=== PATIENT | female | born 1935 | race Caucasian/White ===

== ENCOUNTER 2018-03-15 10:29 | Outpatient (CLI) | payer MEDICARE, BC ==
[2018-03-15] MEDS ORDERED: ISOVUE-370 76%-LOCM 1 ML ONE (13:31)
--- NOTE | 2018-03-15 14:00 | CT ---
CT CHEST PERFORMED WITH INTRAVENOUS CONTRAST ENHANCEMENT: HISTORY: Abnormal parenchymal density seen at the lateral aspect of the right mid lung field on recent chest x -ray. COMPARISON: Chest exam from 03/04/2018. FINDINGS: The lungs show some chronic appearing change. In the area of concern, which is along the lateral asp ect of the thoracic wall and mainly extends along the minor fissure, but also involves the area near the confluence of the major and minor fissures. These changes appear to represent more an area of ei ther scar or some acute developing infiltrative change. Some of these changes are pleural-based, but do not have suspicious features for malignancy. There are small mediastinal lymph nodes, which appear pathologically enlarged. No significant hilar adenopathy. No axillary adenopathy. The visualized liver parenchyma is normal. There is a small hiatal hernia seen. The spleen is incom pletely visualized but appears slightly enlarged. The pancreas region is unremarkable. The gallblad sd has been removed. A partially visualized hypodensity of the upper pole of the right kidney is no t fully characterized. CT numbers are indeterminate. It could still represent a cyst. Ultrasound o n a nonemergent basis would be recommended as initial evaluation of this finding. CT numbers are hig her than typically seen for a cyst but could just be related to its rather small size. It measures a pproximately 14 mm. IMPRESSION: 1. The parenchymal density along the right mid lung field would suggest scar or some minimal infiltr ative type change in this region. There are chronic appearing lung changes. 2. Incompletely characterized hypodense lesion in the upper pole of the right kidney. Ultrasound wo uld be recommended for assessment of this, as the initial study. 3. Suggestion of some mild splenomegaly. POS: [facility]
== END 2018-03-15 10:30 | disposition home or self-care (01) ==
LOC: BICCT 10:29
PROVIDERS: ATTEND Internal Medicine Geriatric Medicine
DX: R91.1 Solitary pulmonary nodule (principal); J98.4 Other disorders of lung; N28.9 Disorder of kidney and ureter, unspecified
CPT/HCPCS: 71260; 82565

== ENCOUNTER 2018-03-28 12:35 | Outpatient (CLI) | payer MEDICARE, BC ==
--- NOTE | 2018-03-28 14:48 | ULT ---
BILATERAL RENAL ULTRASOUND COMPLETE: HISTORY: An 82-year-old female with a history of follow up right upper pole lesion from prior CT. COMPARISON: Chest CT scan from 03/15/2018. FINDINGS: The right kidney measures 10.1 x 4.9 x 4.9 cm. The left kidney measures 10.7 x 4.3 x 4.4 cm. There is a poorly circumscribed, somewhat irregular-shaped, hypoechoic focus in the upper pole of the right kidney, which appears to correspond to the abnormality on the prior CT. I do not think this is defi nitively characterized to represent a definite benign cyst. I favor it to probably represent a somew hat complicated, possibly partially septated cyst, but I do not think this is totally characterized f rom this study or from the prior CT. No renal hydronephrosis. The bladder is unremarkable. The lef t kidney is unremarkable. IMPRESSION: 1. Incompletely characterized, less than 2 cm in diameter, partially sonolucent mass in the upper po le of the right kidney, corresponding to the prior CT abnormality, but being incompletely characteriz ed based on this ultrasound and on the prior CT, additional imaging, to include with and without cont rast multiphase CT of the abdomen and pelvis with renal mass protocol, should certainly be considered . 2. No renal hydronephrosis. 3. Unremarkable appearing bladder. 4. Unremarkable appearing left kidney. A follow-up abdomen and pelvic CT scan with and without contrast, using renal mass protocol, is sugge sted for further assessment, particularly if the patient has evidence for hematuria or any acute s ymptoms. POS: [facility]
== END 2018-03-28 12:36 | disposition home or self-care (01) ==
LOC: BICULT 12:35
PROVIDERS: ATTEND Internal Medicine Geriatric Medicine
DX: N28.9 Disorder of kidney and ureter, unspecified (principal); N28.89 Other specified disorders of kidney and ureter
CPT/HCPCS: 76770

== ENCOUNTER 2018-04-12 12:13 | Outpatient (CLI) | payer MEDICARE, BC ==
--- NOTE | 2018-04-12 15:38 | CT ---
CT ABDOMEN AND PELVIS WITH AND WITHOUT CONTRAST: HISTORY: Mass. COMPARISON: Ultrasound from 03/28/2018. FINDINGS: There is a 13 mm mass in the superior pole right kidney, corresponding to the prior region of interes t, which does not have any enhancement indicating a cyst. The lung bases are clear. No pericardial effusion. Dense coronary artery calcifications. Prior cho lecystectomy. IVC filter is in place. Spleen is mildly enlarged. Portal vein is patent. There is a subtle hypodensity within the pancreatic uncinate process, measuring 7 mm. The aortoiliac contour is nonaneurysmal. Moderate diverticular disease of the sigmoid colon without active current inflammation. On the delayed phase of contrast, there are no filling defects within the renal calyces, renal pelves , or the ureters. No filling defect within the urinary bladder. Advanced facet arthropathy of the lower lumbar spine. No acute fracture. IMPRESSION: 1. Corresponding to the region of interest in the superior pole right kidney is a simple cyst. 2. Mild splenomegaly with patent splenic vein and portal vein. 3. Subtle hypodensity insinuating in the uncinate process of the pancreas, measuring 7-8 mm. A foll ow-up pancreatic protocol MRI in 1 to 2 months is recommended. CODE T POS: [facility]
[2018-04-12] MEDS ORDERED: ISOVUE-370 76%-LOCM 1 ML ONE (17:02)
== END 2018-04-12 12:14 | disposition home or self-care (01) ==
LOC: BICCT 12:13
PROVIDERS: ATTEND Internal Medicine Geriatric Medicine
DX: N28.89 Other specified disorders of kidney and ureter (principal); R16.1 Splenomegaly, not elsewhere classified; N28.1 Cyst of kidney, acquired
CPT/HCPCS: 74178; 82565

== ENCOUNTER 2018-04-29 09:42 | Outpatient (CLI) | payer MEDICARE, BC ==
--- NOTE | 2018-04-29 12:06 | BD ---
BONE DENSITOMETRY USING DEXA: Date: 04/29/18 HISTORY: Postmenopausal screening for osteoporosis. FINDINGS: Lumbar Spine: BMD (g/cm2) L1 1.698 T-Score: 6.4 Z-Score: 8.8 L2 1.921 T-Score: 8.1 Z-Score: 10.8 L3 1.951 T-Score: 7.9 Z-Score: 10.7 L4 1.900 T-Score: 7.6 Z-Score: 10.5 L1-L4 1.864 T-Score: 7.4 Z-Score: 10.1 Femoral Neck: 0.986 T-Score: 1.2 Z-Score: 3.6 Total Femur: 1.191 T-Score: 2.0 Z-Score: 4.1 IMPRESSION: Normal bone mineral density. No evidence of osteopenia/osteoporosis. POS: [facility]
== END 2018-04-29 09:43 | disposition home or self-care (01) ==
LOC: BICMAMMO 09:42
PROVIDERS: ATTEND Internal Medicine Geriatric Medicine
DX: Z13.820 Encounter for screening for osteoporosis (principal)
CPT/HCPCS: 77080

== ENCOUNTER 2018-07-09 11:19 | Outpatient (CLI) | payer MEDICARE, BC ==
[~2018-07-09 11:19] MED LIST: Gadobenate Dimeglumine 529 MG/1 ML (20ML VIAL) ONE
--- NOTE | 2018-07-09 15:05 | MRI ---
MRI OF THE ABDOMEN WITHOUT AND WITH CONTRAST: COMPARISON: CT abdomen/pelvis 04/12/2018. HISTORY: Pancreatic lesions seen in the uncinate process of the pancreas. TECHNIQUE: Multiplanar, multisequence MR images were obtained of the abdomen without and with IV contrast. MRCP images were performed. FINDINGS: The gallbladder has been removed. There is enlargement of the common bile duct to 11 mm which is lik kb a reservoir effect from prior cholecystectomy. There is a well-circumscribed focus of high T2 si gnal in the superior pole of the right kidney measuring 1.9 cm in size which likely represents a cyst . Other smaller foci of high T2 signal in the bilateral kidneys may represent smaller cysts. No mass lesion is seen within the pancreas. No pancreatic ductal dilatation is seen. The abnormalit y on CT may have been artifactual. The adrenal glands and spleen are unremarkable. No focal liver lesions are present. No intrahepatic biliary dilatation is seen. No abdominal adenopathy is seen. No marrow signal abnormality is present. Degenerative changes are seen in the spine. IMPRESSION: 1. No suspicious pancreatic lesion identified. 2. Renal cysts. POS: [facility]
== END 2018-07-09 11:20 | disposition home or self-care (01) ==
LOC: BICMRI 11:19
PROVIDERS: ATTEND Internal Medicine Geriatric Medicine
DX: K86.89 Other specified diseases of pancreas (principal); N28.1 Cyst of kidney, acquired
CPT/HCPCS: 74183; A9577

== ENCOUNTER 2019-07-15 08:22 | Emergency (ER) | payer MEDICARE, BC ==
[2019-07-15] MEDS ORDERED: Ketorolac Tromethamine 30 MG/ML VIAL ONE (08:59)
--- NOTE | 2019-07-15 09:07 | CT ---
CT OF THE PELVIS WITHOUT CONTRAST: Date: 07/15/2019 INDICATION: History of fall with right hip pain. COMPARISON: None. FINDINGS: There is colonic diverticulosis. There are moderate calcifications involving the pelvic vasculature. There is an IVC filter seen within the distal inferior vena cava. Visualized small bowel is normal ap pearing. No free fluid is evident. The reproductive structures are surgically absent. There is diffuse osteopenia. There is moderate degenerative change of both hips. No displaced pelvic fracture is demonstrated. There is moderate chronic osteitis pubis. There is moderate degenerative ch pamela of both SI joints. IMPRESSION: No displaced fracture demonstrated. POS: [facility]
[2019-07-15] MEDS ORDERED: Morphine 4 MG/ML VIAL ONE ×2 (09:36→11:50)
[2019-07-15 09:45] LABS: Hemoglobin 14.4 g/dL (12.0-16.0); Mean Corpuscular HGB CONC 32.2 g/dL (32.0-36.0); Mean Corpuscular Hemoglobin 27.6 pg (27.0-31.0); Mean Corpuscular Volume 85.5 fL (78.0-98.0); Mean Platelet Volume 7.9 fL (7.4-10.4); Platelet Count 139 thou/uL (130-400); RBC Distribution Width 13.6 % (11.5-14.5); Red Blood Cell (RBC) Count 5.24 mill/uL (4.20-5.40); White Blood Cell (WBC) Count 10.4 thou/uL (4.8-10.8)
[2019-07-15 10:01] LABS: Band 4 % (5-11); Lymphocytes 12 % (21-51); MDiff Complete? YES; Monocytes 18 % (0-10); Neutrophil 65 % (42-75); Platelet Morphology Comment Appears Adequate; RBC Morphology Normal; Reactive Lymphocytes 1 % (0-10)
[2019-07-15 10:07] LABS: ALT (SGPT) 12 U/L (8-55); AST (SGOT) 19 U/L (5-34); Albumin 3.4 g/dL (3.4-4.8); Alkaline Phosphatase 96 U/L (40-110); Anion Gap 14 mmol/L (10-20); BUN (Urea Nitrogen) 13 mg/dL (9.8-20.1); Bilirubin, Total 0.4 mg/dL (0.2-1.2); Calc. Creatinine Clearance 0 mL/min (70-130); Calcium 8.9 mg/dL (7.8-10.44); Carbon Dioxide 24 mmol/L (23-31); Chloride 103 mmol/L (98-107); Estimated GFR-MDRD 70; Globulin 3.8 g/dL (2.4-3.5); Glucose 292 mg/dL (83-110); Potassium 5.1 mmol/L (3.5-5.1); Protein, Total 7.2 g/dL (6.0-8.3); Sodium 136 mmol/L (136-145)
[2019-07-15] MEDS ORDERED: Ondansetron PF 4 MG/2 ML Vial ONE ×2 (11:11→11:50)
[2019-07-15] MEDS ORDERED: Lorazepam 2 MG/ML VIAL ONE (11:11)
[2019-07-15 11:39] LABS: Bilirubin Negative (Negative); Blood, Urine Negative (Negative); Clarity Clear (Clear); Glucose, Urine (Dipstick) 150 mg/dL (Negative); Leukocyte Negative Leu/uL (Negative); Nitrite Negative (Negative); Protein, Urine (Dipstick) 10 mg/dL (Neg-Trace); Urobilinogen Normal mg/dL (Less than 2)
--- NOTE | 2019-07-16 13:43 | EKG ---
Test Reason : Blood Pressure : / mmHG Vent. Rate : 095 BPM Atrial Rate : 095 BPM P-R Int : 182 ms QRS Dur : 080 ms QT Int : 328 ms P-R-T Axes : 053 -65 049 degrees QTc Int : 412 ms Normal sinus rhythm with sinus arrhythmia Left axis deviation Inferior infarct , age undetermined Abnormal ECG Confirmed by KUSUM GUERRERO ([id number]), order editor WILLIE ROSS ([id number]) on 07/16/2019 1:43:25 PM Referred By: Confirmed By:KUSUM GUERRERO
== END 2019-07-15 13:58 ==
LOC: ERS 08:22
DX: M16.11 Unilateral primary osteoarthritis, right hip (principal); E11.9 Type 2 diabetes mellitus without complications; J45.909 Unspecified asthma, uncomplicated; Z79.84 Long term (current) use of oral hypoglycemic drugs; Z79.899 Other long term (current) drug therapy
CPT/HCPCS: 36415; 72192; 80053; 81003; 85025; 93005; 96372; 96374; 96375; J1885; J2060; J2270; J2405

== ENCOUNTER 2023-09-17 13:03 | Emergency (ER) | payer MEDICARE, BC ==
[~2023-09-17 13:03] MED LIST changes: -Gadobenate Dimeglumine 529 MG/1 ML (20ML VIAL) ONE; +Iopamidol-370 76% 500 ML MDV (1 ML CHARGE) ONE
[2023-09-17] MEDS ORDERED: Morphine 4 MG/ML VIAL ONE ×2 (13:39→15:25)
[2023-09-17 14:05] LABS: #Basophils 0.03 10x3/uL (0.0-0.2); %Basophils 0.4 % (0.0-1.0); %Eosinophils 1.1 % (0.0-10.0); %Lymphocytes 8.4 % (21.0-51.0); %Monocytes 10.9 % (0.0-10.0); %Neutrophils 78.2 % (42.0-75.0); Hemoglobin 13.2 g/dL (12.0-16.0); Mean Corpuscular HGB CONC 32.2 g/dL (32.0-36.0); Mean Corpuscular Hemoglobin 27.5 pg (27.0-31.0); Mean Corpuscular Volume 85.4 fL (78.0-98.0); Mean Platelet Volume 11.5 fL (7.4-10.4); Platelet Count 116 10x3/uL (130-400); RBC Distribution Width 15.2 % (11.5-14.5)
[2023-09-17 14:09] LABS: ALT (SGPT) 13 U/L (8-55); AST (SGOT) 22 U/L (5-34); Albumin 3.3 g/dL (3.4-4.8); Alkaline Phosphatase 70 U/L (40-110); Anion Gap 12 mmol/L (10-20); BUN (Urea Nitrogen) 13 mg/dL (9.8-20.1); Bilirubin, Total 0.6 mg/dL (0.2-1.2); CK (CPK) 27 U/L (29-168); Calc. Creatinine Clearance 0 mL/min (70-130); Calcium 9.6 mg/dL (7.8-10.44); Carbon Dioxide 27 mmol/L (23-31); Chloride 104 mmol/L (98-107); Estimated GFR 68; Globulin 4.3 g/dL (2.4-3.5); Glucose 115 mg/dL (83-110); Magnesium 1.6 mg/dL (1.6-2.6); Potassium 4.4 mmol/L (3.5-5.1); Protein, Total 7.6 g/dL (5.8-8.1); Sodium 139 mmol/L (136-145)
[2023-09-17 14:13] LABS: Troponin I 0.015 ng/mL (< 0.028)
[2023-09-17 14:22] LABS: INR-International Normal Ratio 1.1; PTT 34.9 sec (22.9-36.1)
[2023-09-17] MEDS ORDERED: Ondansetron PF 4 MG/2 ML Vial ONE (15:25)
[2023-09-17 18:36] LABS: Bacteria/HPF 3+ HPF (None Seen); Bilirubin Negative (Negative); Blood, Urine 1+ (Negative); CAUTI Indications for Culture Pelvic or flank pain; Clarity Extra Turbid (Clear); Glucose, Urine (Dipstick) Normal (Negative); Ketone, Urine Negative (Negative); Leukocyte 500 Leu/uL (Negative); Nitrite 2+ (Negative); Protein, Urine (Dipstick) 50 mg/dL (Neg-Trace); RBC/HPF 21-50 HPF (0-3); Specific Gravity, Urine 1.037 (1.002-1.036); Squamous Epithelial None Seen HPF (0-3); Urobilinogen Normal mg/dL (Less than 2); WBC/HPF Greater than 50 HPF (0-3)
[2023-09-17 18:43] LABS: Urine Culture Reflex Yes Yes
== END 2023-09-17 19:27 ==
LOC: ERS 13:03 → EDSEX 13:03 → ERS 19:27
DX: S22.31XA Fracture of one rib, right side, initial encounter for closed fracture (principal); M25.551 Pain in right hip; E11.9 Type 2 diabetes mellitus without complications; Z79.84 Long term (current) use of oral hypoglycemic drugs; W01.0XXA Fall on same level from slipping, tripping and stumbling without subsequent striking against object, initial encounter
CPT/HCPCS: 70450; 71045; 72125; 72170; 73502; 74177; 80053; 81001; 82550; 83605; 83735; 83880; 84484; 85025; 85610; 85730; 87086; 93005; J2270; J2405; 36416; 87077; 87186; 96374; 96375; 96376

== ENCOUNTER 2023-10-11 11:07 | Observation (INO) | payer MEDICARE, BC ==
[2023-10-11 12:22] LABS: #Basophils Less than 0.03 10x3/uL (0.0-0.2); %Basophils 0.2 % (0.0-1.0); %Eosinophils 0.3 % (0.0-10.0); %Lymphocytes 3.6 % (21.0-51.0); %Monocytes 14.5 % (0.0-10.0); %Neutrophils 80.3 % (42.0-75.0); Hematocrit 36.4 % (36.0-47.0); Hemoglobin 11.9 g/dL (12.0-16.0); Mean Corpuscular HGB CONC 32.7 g/dL (32.0-36.0); Mean Corpuscular Hemoglobin 27.3 pg (27.0-31.0); Mean Corpuscular Volume 83.5 fL (78.0-98.0); Mean Platelet Volume 11.6 fL (7.4-10.4); Platelet Count 141 10x3/uL (130-400); RBC Distribution Width 15.2 % (11.5-14.5); Red Blood Cell (RBC) Count 4.36 mill/uL (4.20-5.40)
[2023-10-11 12:34] LABS: ALT (SGPT) 15 U/L (8-55); AST (SGOT) 19 U/L (5-34); Albumin 2.9 g/dL (3.4-4.8); Alkaline Phosphatase 104 U/L (40-110); Anion Gap 14 mmol/L (10-20); BUN (Urea Nitrogen) 16 mg/dL (9.8-20.1); Bilirubin, Total 0.8 mg/dL (0.2-1.2); Calc. Creatinine Clearance 0 mL/min (70-130); Calcium 9.1 mg/dL (7.8-10.44); Carbon Dioxide 21 mmol/L (23-31); Chloride 104 mmol/L (98-107); Estimated GFR 81; Globulin 4.4 g/dL (2.4-3.5); Glucose 175 mg/dL (83-110); Protein, Total 7.3 g/dL (5.8-8.1); Sodium 135 mmol/L (136-145)
[2023-10-11 12:36] LABS: Troponin I Less than 0.010 ng/mL (< 0.028)
[2023-10-11 14:59] LABS: Bacteria/HPF 4+ HPF (None Seen); Bilirubin Negative (Negative); Blood, Urine Trace (Negative); CAUTI Indications for Culture Pelvic or flank pain; Clarity Turbid (Clear); Glucose, Urine (Dipstick) Normal (Negative); Ketone, Urine 40 mg/dL (Negative); Leukocyte 500 Leu/uL (Negative); Nitrite 2+ (Negative); Protein, Urine (Dipstick) 100 mg/dL (Neg-Trace); Specific Gravity, Urine 1.021 (1.002-1.036); Urobilinogen Normal mg/dL (Less than 2); WBC/HPF Greater than 50 HPF (0-3)
[2023-10-11 15:00] LABS: Urine Culture Reflex Yes Yes
[2023-10-11] MEDS ORDERED: cefTRIAXone (ROCEPHIN) 1 GM VIAL ONE (15:17)
[2023-10-11] MEDS ORDERED: Senokot S 8.6-50 MG TAB PO PRN (15:57)
[2023-10-11] MEDS ORDERED: Dextrose 50% Abboject 50 ML SYRINGE SLOW IVP PRN (15:57)
[2023-10-11] MEDS ORDERED: Insulin Regular, Human 100 UNIT/ML 10 ML VIAL SC PRN (15:57)
[2023-10-11] MEDS ORDERED: Dextrose 5% in Water 1,000 ML IV PRN (15:57)
[2023-10-11] MEDS ORDERED: Glucagon 1 MG/ML KIT IM PRN (15:57)
[2023-10-11 17:17] VITALS: BMI 25.8
[2023-10-11] MEDS: Sodium Chloride 0.9% 1,000 ML IV SCH (18:01)
[2023-10-11] MEDS: Acetaminophen 325 MG TAB PO SCH (18:02)
[2023-10-11] MEDS: Famotidine 20 MG TAB PO SCH (20:25)
[2023-10-11] MEDS: Naproxen 500 MG TAB PO SCH (20:26)
[2023-10-12 05:24] LABS: Hematocrit 29.9 % (36.0-47.0); Hemoglobin 9.7 g/dL (12.0-16.0); Mean Corpuscular HGB CONC 32.4 g/dL (32.0-36.0); Mean Corpuscular Hemoglobin 27.2 pg (27.0-31.0); Mean Corpuscular Volume 83.8 fL (78.0-98.0); Mean Platelet Volume 11.6 fL (7.4-10.4); Platelet Count 107 10x3/uL (130-400); RBC Distribution Width 15.3 % (11.5-14.5); Red Blood Cell (RBC) Count 3.57 mill/uL (4.20-5.40)
[2023-10-12 05:38] LABS: Anion Gap 11 mmol/L (10-20); BUN (Urea Nitrogen) 14 mg/dL (9.8-20.1); Calc. Creatinine Clearance 79 mL/min (70-130); Carbon Dioxide 21 mmol/L (23-31); Chloride 107 mmol/L (98-107); Estimated GFR 86; Glucose 116 mg/dL (83-110); Potassium 3.5 mmol/L (3.5-5.1); Sodium 135 mmol/L (136-145)
[2023-10-12 05:54] LABS: Band 7 % (5-11); Eosinophils 1 % (0-10); Hypochromia SLIGHT = 6-15 cells HPF (0-5); Large Platelets 6.9 % (0-5); Lymphocytes 11 % (21-51); Monocytes 13 % (0-10); Neutrophil 63 % (42-75); Platelet Adequacy Comment Platelets Decreased; Polychromasia SLIGHT = 2-3 cells HPF (0-2); Reactive Lymphocytes 5 % (0-10)
[2023-10-12 08:08] VITALS: TEMP 97.9
[2023-10-12] MEDS: Enoxaparin 40 MG (0.4 mL) SYRINGE SC SCH (08:13)
[2023-10-12 11:11] VITALS: BP 117/68
[2023-10-12] MEDS ORDERED: cefTRIAXone\\ROCEPHIN 1 GM in Sodium Chloride 0.9% 100 ML IVPB SCH (15:00)
== END 2023-10-12 12:18 | disposition home or self-care (01) ==
LOC: ERS 11:07 → T4-B 16:38
PROVIDERS: ADMIT Hospitalist; ATTEND Internal Medicine
DX: N39.0 Urinary tract infection, site not specified (principal); R00.0 Tachycardia, unspecified; M25.552 Pain in left hip; E11.9 Type 2 diabetes mellitus without complications; J45.909 Unspecified asthma, uncomplicated; M19.90 Unspecified osteoarthritis, unspecified site; Z88.2 Allergy status to sulfonamides; Z91.040 Latex allergy status; Z88.8 Allergy status to other drugs, medicaments and biological substances; Z96.653 Presence of artificial knee joint, bilateral; Z90.49 Acquired absence of other specified parts of digestive tract; Z90.710 Acquired absence of both cervix and uterus; Z79.899 Other long term (current) drug therapy
CPT/HCPCS: 71045; 72170; 72192; 73552; 80048; 80053; 81001; 82962 ×2; 83605; 84484; 85025 ×2; 87040; 87077; 87086; 87186; 93005; 97116; J0696; J1650; J7050; 36415; 36416; 96372; 96374; G0378

== ENCOUNTER 2023-10-24 08:18 | Emergency (ER) | payer MEDICARE, BC ==
[2023-10-24] MEDS ORDERED: HYDROcodone/Acetaminophen 5/325 mg Tablet ONE (09:27)
[2023-10-24] MEDS ORDERED: Acetaminophen 500 MG TAB ONE (09:30)
[2023-10-24] MEDS ORDERED: Ibuprofen 200 MG TAB ONE (11:10)
== END 2023-10-24 12:35 | disposition home or self-care (01) ==
LOC: ERS 08:18
DX: I89.0 Lymphedema, not elsewhere classified (principal); G57.92 Unspecified mononeuropathy of left lower limb; R29.6 Repeated falls; E11.9 Type 2 diabetes mellitus without complications; Z79.84 Long term (current) use of oral hypoglycemic drugs; Z79.82 Long term (current) use of aspirin

== ENCOUNTER 2023-12-01 12:13 | Emergency (ER) | payer MEDICARE, BC | END 2023-12-01 14:24 | disposition home or self-care (01) | LOC: ERS 12:13 | DX: S09.90XA Unspecified injury of head, initial encounter (principal); S40.011A Contusion of right shoulder, initial encounter; E11.9 Type 2 diabetes mellitus without complications; W19.XXXA Unspecified fall, initial encounter | CPT/HCPCS: 70450 ==

== ENCOUNTER 2024-02-04 13:28 | Outpatient (CLI) | payer MEDICARE, BC | END 2024-02-04 13:29 | disposition home or self-care (01) | LOC: RAD 13:28 | PROVIDERS: ATTEND Family Medicine | DX: M25.532 Pain in left wrist (principal); M15.9 Polyosteoarthritis, unspecified ==